=== PATIENT | female | born 1975 | race Caucasian/White ===

== ENCOUNTER 2018-03-30 07:26 | Emergency (ER) | payer SELFPAY ==
[2018-03-30 07:39] VITALS: TEMP 99.1
--- NOTE | 2018-03-30 08:44 | C.PDOC ---
History Of Present Illness 42-year-old female, presents to the emergency department with complaints of [place] to right [place]. Patient states she tripped and fell, injuring her right knee. She denies any other joint injuries, loss of consciousness. Patient notes pain worsens with ambulation. Denies numbness/ weakness, or any other associated symptoms. No other complaints at this time. Time Seen by Provider: 03/30/18 07:38 Chief Complaint (Nursing): Lower Extremity Problem/Injury History Per: Patient History/Exam Limitations: no limitations Current Symptoms Are (Timing): Still Present Severity: Moderate Past Medical History Reviewed: Historical Data, Nursing Documentation, Vital Signs Vital Signs: Last Vital Signs Temp 99.1 F 03/30/18 07:36 Pulse 80 03/30/18 09:06 Resp 17 03/30/18 09:06 BP 97/65 L 03/30/18 09:06 Pulse Ox 100 03/30/18 18:10 - Medical History PMH: Asthma, Kidney Stones, Chronic Kidney Disease Family History: States: No Known Family Hx - Social History Hx Tobacco Use: No Hx Alcohol Use: Yes Hx Substance Use: No - Immunization History Hx Tetanus Toxoid Vaccination: No Hx Influenza Vaccination: No Hx Pneumococcal Vaccination: No Review Of Systems Except As Marked, All Systems Reviewed And Found Negative. Musculoskeletal: Positive for: Other (right knee pain) Physical Exam - Physical Exam Appears: Non-toxic, No Acute Distress Skin: Normal Color, Warm, Dry, No Rash Head: Atraumatic Eye(s): bilateral: Normal Inspection Nose: Normal Oral Mucosa: Moist Lips: Normal Appearing Neck: Normal ROM Chest: Symmetrical Respiratory: No Accessory Muscle Use Extremity: Tenderness (right anterior knee.), No Deformity, No Swelling Pulses: Left Dorsalis Pedis: Normal, Right Dorsalis Pedis: Normal Neurological/Psych: Oriented x3, Normal Speech ED Course And Treatment O2 Sat by Pulse Oximetry: 100 (RA) Pulse Ox Interpretation: Normal - Other Rad XR R KNEE X-Ray: Viewed By Me (PRELIM: NEG FRACTURE/DISLOCATION) Medical Decision Making Medical Decision Making: Plan: * XR Knee * Motrin * Reassess and Disposition Disposition Counseled Patient/Family Regarding: Studies Performed, Diagnosis, Need For Followup, Rx Given - Disposition Referrals: Nico Combs MD [Staff Provider] - Disposition: HOME/ ROUTINE Disposition Time: 08:43 Condition: STABLE Additional Instructions: follow up with orthopaedic within 2 days call to make an appointment ice, rest, elevate take pain medication as needed return to ER if symptoms worsens or progress Prescriptions: Naproxen [Naprosyn] 500 mg PO BID PRN #16 tab PRN Reason: Pain, Moderate (4-7) Instructions: Knee Sprain (DC) Forms: General Discharge Instructions, [facility] ([place]), Work Excuse - Clinical Impression Clinical Impression: Right knee sprain - Scribe Statement The provider has reviewed the documentation as recorded by the Scribe (Brad Helton) All medical record entries made by the Scribe were at my direction and personally dictated by me. I have reviewed the chart and agree that the record accurately reflects my personal performance of the history, physical exam, medical decision making, and the department course for this patient. I have also personally directed, reviewed, and agree with the discharge instructions and disposition.
[2018-03-30 09:06] VITALS: BP 97/65; PULSE 80; RESP 17
--- NOTE | 2018-03-30 09:27 | RAD ---
Date of service: 03/30/2018 PROCEDURE: Right Knee Radiographs. HISTORY: fall COMPARISON: None. FINDINGS: BONES: Normal. No fracture. JOINTS: Normal. No osteoarthritis. JOINT EFFUSION: None. OTHER FINDINGS: None. IMPRESSION: Normal radiographs of the right knee.
[2018-03-30 09:37] VITALS: O2SAT 100
== END 2018-03-30 09:17 | disposition home or self-care (01) ==
LOC: C.ER 07:26
DX: S83.91XA Sprain of unspecified site of right knee, initial encounter (principal); W01.0XXA Fall on same level from slipping, tripping and stumbling without subsequent striking against object, initial encounter; Y92.832 Beach as the place of occurrence of the external cause